=== PATIENT | female | born 1970 | race Caucasian/White ===

== ENCOUNTER 2023-02-22 15:24 | Inpatient (IN) | payer OTHER, SELFPAY ==
[2023-02-22] VITALS (11 sets, daily range): BP systolic 121–158; BP diastolic 67–101; PULSE 62–98; RESP 14–22; TEMP 36.4–36.5; O2SAT 95–100; BMI 24.9
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
[2023-02-22] MEDS: ceFAZolin 2 GM/50 ML BAG 100 GM (15:51)
[2023-02-22] MEDS: HYDROmorphone 2 MG/ML SYR (15:52)
[2023-02-22] MEDS: HYDROmorphone 2 MG/ML SYR 1 MG IVP ×3 (16:17→18:36)
[2023-02-22] MEDS: Omnipaque 350 MG/ML 100 ML BTL IJ (16:20)
[2023-02-22] MEDS: Normal Saline - Diluent 50 ML VIAL IJ (16:22)
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
[2023-02-22 17:57] LABS: Abs Immature Grans 0.05 10^3/uL (0.0-0.06); Absolute Basophil Count 0.04 10^3/uL (0.0-0.2); Absolute Eosinophil Count 0.01 10^3/uL (0.0-0.7); Absolute Lymphocyte Count 0.99 10^3/uL (1.2-3.4); Absolute Monocyte Count 0.75 10^3/uL (0.1-0.8); Absolute Neutrophil Count 12.77 10^3/uL (1.2-6.7); Basophils % 0.3; Eosinophils % 0.1; HCT 32.9 % (36.0-46.0); HGB 11.3 g/dL (11.2-15.7); Immature Grans % 0.3; Lymphocytes % 6.8; MCH 34.2 pg (27.0-33.0); MCHC 34.3 % (32.0-36.0); MCV 100 fL (80-95); MPV 9.9 fL (8.0-11.0); Monocytes % 5.1; Neutrophils % 87.4; Platelet Count 210 10^3/uL (130-400); RDW 12.2 % (11.7-14.6); RDW-SD 44.7 fL; WBC 14.61 10^3/uL (4.4-10.8)
[2023-02-22 18:11] LABS: ALT 18 U/L (14-59); AST 28 U/L (15-37); Albumin 3.2 g/dL (3.4-5.0); Alkaline Phosphatase 51 U/L (46-116); Anion Gap 9.9 mmol/L (3-11); BUN 14 mg/dL (7-18); Bilirubin, Total 0.2 mg/dL (0.2-1.0); CO2 25.1 mmol/L (21.0-32.0); CREATININE 0.8 mg/dL (0.55-1.02); Calcium 7.4 mg/dL (8.5-10.1); Chloride 104 mmol/L (98-107); Estimated GFR 88.05 (mL/min/1.73m2); Glucose 97 mg/dL (74-106); Magnesium 1.5 mg/dL (1.8-2.4); Potassium 3.6 mmol/L (3.5-5.1); Sodium 139 mmol/L (136-145); Total Protein 6.1 g/dL (6.4-8.2)
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
--- NOTE | 2023-02-22 19:45 | DI.RAD_ITS ---
Exam(s) XR FOREARM LT EXAM: XR FOREARM LT CLINICAL HISTORY: LEFT RADIUS/ULNA FX TECHNIQUE: 2D and realtime digital imaging was performed. CONTRAST MATERIAL: Refer to procedure report. COMPARISON: CR,XR XR FOREARM LT from 02/22/2023 FINDINGS: Fluoroscopy was provided for Dr. Bundy during the performance of a reduction and internal fixation o f the radius and ulnar fractures. Please refer to the procedure report for complete details. Ka,r=0.18 mGy IMPRESSION: RADIATION DOSE DELIVERED:
--- NOTE | 2023-02-22 20:05 | W.PM.OP ---
Date of service: 02/22/23 Time of Service: 20:05 Operative Note Operative Note DATE OF PROCEDURE: 02/22/23 PRE-OP DIAGNOSIS: Left open displaced radius and ulnar shaft fracture POST-OP DIAGNOSIS: same PROCEDURE: Left 1. Radius and ulnar shaft open reduction internal fixation, CPT# 28161 2. Open fracture irrigation and debridement including skin, subcutaneous tissue, muscle, fascia, and bone, CPT #41854 SURGEON: Curt Bundy PRODUCTION ZONE LEADER: Macrina Burgos ANESTHESIA TYPE: Local By Surgeon and General LMA/ETT Refer to Anesthesia Record ESTIMATED BLOOD LOSS: 15 PATHOLOGY: none sent TOURNIQUET TIME: 0 COMPLICATIONS: None Patient was transported to: PACU Patient's condition: stable Implants: Synthes 3.5 mm LCP 6-hole plate with 6x 3.5mm cortex screws radius & 3.5 mm LCP 6-hole plate with 6x 3.5mm cortex screws ulna Indications: Please see complete medical record for details. Findings: Dorsal open wound sites from both proximal forearm bone with gross contamination around skin, subcutaneous tissue, muscle, and bone. Dorsal ulnar wound was about 2 cm oblique. Dorsal central wound was about 3 cm round with soft tissue loss centrally. Procedure Description: In the operating room, general anesthesia was induced. The patient was positioned supine on the operating room table. All bony prominences were well-padded. Preoperative antibiotics were administered. The left forearm was prepped and draped in the usual sterile fashion. The correct patient, procedure, and side of the procedure were all verified prior to incision. With the splint off, the forearm was examined. The radial pulse was 1+ but palpable. There was gross instability and obvious deformity of the forearm. Compartments were soft. The dorsal wounds tracked deeply to both radius and ulna bones. Although local wound care had been done in the emergency department, there was still gross contamination dirt and small foreign debris about the skin margins and deep tissue. The dorsal ulnar open wound was extended a few centimeters proximally and distally. There was a defect about the ECU that was utilized and tissue elevated proximally distally to expose the bone ends. There was foreign material dirt and debris about the subcutaneous tissue, muscle, and on the end of the bone and in the bone canal. This wound was meticulously debrided and irrigated of all foreign material with rongeur, pickups, and Perez tip suction used to thoroughly clean the bone and and remove contaminated bone at the fracture site. 1 L normal saline was irrigated. The dorsal central radial fracture wound was thoroughly irrigated and debrided of gross contamination visible from the dorsal side however the forearm was then positioned for usual volar James approach to the radial shaft. The skin was incised and then subcutaneous and deep tissue defects were then used from the injury to expose the fractures, which directed the approach slightly more radial than usual. The brachial radialis and radial sensory nerve were carefully mobilized and retracted radially. The radial artery was crossing the incision and more readily mobilized ulnarly with the flexor carpi radialis. There was significant muscle injury at the fracture site with partial transection of deep forearm compartment muscle probably involving the flexor pollicis longus. Where the bone ends were contaminated, but to a lesser degree. Again meticulous debridement was done to remove all small gross contaminants from the skin, subcutaneous tissue, muscle tendon and especially the bone and, which had to be similarly debrided with rongeur to remove contaminated bone. There was a devitalized segmental piece of comminution that was removed. Smaller pieces with soft tissue attachments were cleaned and remained. Another 1 L of normal saline was irrigated at this site. Once the open fracture irrigation and debridement is done, attention was turned to reduction and fixation of the forearm fractures. The radial shaft was provisionally reduced and reduction held in place with a threaded K wire. The 8 hole plate appeared too large for the diminutive patient forearm so a 6-hole plate was used instead. It was slightly contoured to radial curvature. The plate was applied to the volar surface, secured to the distal fragment with a 3.5 mm bicortical cortex screw, position optimized, and secured to the proximal fragment with another screw. K wire was removed. And bone clamps used and final tightening of the proximal screw to achieve some compression across the fracture site limited by removal of comminution and debridement of the bone ends. An additional proximal and distal bicortical cortex screw was placed. Attention was then turned back to the ulna with the bones reduced with clamps and a 6-hole plate applied to the dorsal surface. It was secured proximally with a bicortical cortex screw and then distally and eccentrically drilled cortex screw was used to achieve compression across the fracture site and optimize plate placement. An additional 2 proximal and distal bicortical cortex screws were placed. The radius was again exposed and the final proximal and distal bicortical cortex screws placed. Final C arm fluoroscopy showed excellent reduction of fractures and appropriate hardware placement. There was a single slightly long 16mm volar radial screw, maybe 2mm, which had to remain as all screws of that 14mm length had been used in the remainder of the plate positions. Both wounds were copiously irrigated with another 1 L of normal saline. Hemostasis was appropriate. The radial artery was intact. Subcutaneous tissue was closed for both surgical sites using 2-0 Monocryl buried interrupted. The skin was closed using 3-0 nylon in a running horizontal mattress manner with an escape stitch centrally. The open wound dorsal ulnarly was incorporated in the closure somewhat loosely. The dorsal central wound was not appropriate for complete closure and instead with a horizontal mattress the tissue margins were approximated to minimize defect. The extremity was cleansed. Compartments remained compressible. Xeroform applied over all incisions and wound. Gauze placed over incisions and the forearm wrapped in sterile soft roll. A volar plaster splint was then molded to the extremity and secured with an Oli bandage. The pulse oximeter was used to confirm appropriate waveform at both the thumb and small fingers. The patient awoke from anesthesia without complication and was transferred to the recovery room in a stable condition.
[2023-02-22] MEDS: Lactated Ringers 1,000 ML 30 ML IV (20:21)
[2023-02-22] MEDS: fentaNYL 100 MCG/2 ML VIAL IVP (23:20)
--- NOTE | 2023-02-22 23:43 | W.PM.PROGNOT ---
Date of Service Date of service: 02/22/23 Time of Service: 23:43 Assessment and Plan Assessment and plan (1) Open fracture of shaft of left radius and ulna: Status: Acute Assessment and plan: 52-year-old female postop day #0 status post left radius and ulnar shaft fracture I&D, ORIF Strict elevation left forearm on pillows. Encourage wiggling fingers and thumb to increase circulation and prevent stiffness. Sling for support when out of bed Pain control-Multimodal Continue mechanical DVT prophylaxis with SCD Anticipate discharge home after completing 24 hours postoperative antibiotics. Follow-up with local orthopedic surgeon in [facility] in 1-2 weeks. Objective Last Vital Signs Temp 97.7 F 02/22/23 23:30 Pulse 62 02/22/23 23:30 Resp 14 02/22/23 23:30 BP 138/89 02/22/23 23:30 Pulse Ox 98 02/22/23 23:30 Laboratory Results - last 24 hr 02/22/23 02/22/23 17:47 17:47 WBC 14.61 H RBC 3.30 L Hgb 11.3 Hct 32.9 L MCV 100 H MCH 34.2 H MCHC 34.3 RDW 12.2 Plt Count 210 MPV 9.9 Immature Gran % 0.3 Neutrophils % 87.4 Lymphocytes % 6.8 Monocytes % 5.1 Eosinophils % 0.1 Basophils % 0.3 Nucleated RBC % 0.0 Absolute Neutrophils 12.77 H Absolute Lymphocytes 0.99 L Absolute Monocytes 0.75 Absolute Eosinophils 0.01 Absolute Basophils 0.04 Sodium 139 Potassium 3.6 Chloride 104 Carbon Dioxide 25.1 Anion Gap 9.9 BUN 14 Creatinine 0.8 Est GFR (CKD-EPI 2020) 88.05 Glucose 97 Calcium 7.4 L Magnesium 1.5 L Total Bilirubin 0.2 AST 28 ALT 18 Alkaline Phosphatase 51 Total Protein 6.1 L Albumin 3.2 L PAWSS Have you Been Recently Intoxicated or Drunk Within the Last 30 days?: No Have you Ever Experienced Previous Episodes of Alcohol Withdrawal?: No Have you ever Experienced Withdrawal Seizures?: No Have you ever Experienced Delirium Tremens(DT)s?: No Have you ever undergone Alcohol Rehabilitation Treatment (i.e, inpt ot outpatient treatment programs)?: No Have you ever Experienced Blackouts?: No Have you ever Combined Alcohol with other Downers within the last 90 days?: No Have you ever Combined Alcohol with any other Substance of Abuse during the last 90 days?: No Positive Blood Alcohol level on Presentation? [PCS.BAL]: No Evidence of Increased Autonomic Activity (i.e. HR>120, tremor, sweating, agitation, nausea)?: No Result: 0 Time Spent with Patient Time Spent with Patient: <25 minutes Time was spent: preparing to see the patient(eg.review tests)
--- NOTE | 2023-02-22 23:57 | W.ANESPOSTOP ---
Postoperative Evaluation Date, Time and Location Date Performed: 02/22/23 Time Performed: 23:57 Patient Location: Med/Surg Vital Signs Most Recent Imported Vital Signs: Most Recent Vital Signs Temp Pulse Resp BP Pulse Ox 36.5 C 62 14 138/89 98 02/22/23 23:30 02/22/23 23:30 02/22/23 23:30 02/22/23 23:30 02/22/23 23:30 Pain Score Most Recent Pain Score: Most Recent Pain Score Pain Level 4 02/22/23 23:30 Assessment Mental Status: Awake (Alert & Oriented to Patient Baseline) Airway and Respiratory Function: Patent airway with normal (patient baseline) respiratory exam Cardiovascular Function: Hemodynamically Stable Hydration Status: Adequately Hydrated Nausea & Vomiting: No Nausea or Vomiting Pain: Pain is tolerable per patient Peripheral Nerve Block: Patient did not receive a nerve block Postoperative Comments:: All questions answered patient reporting pain is well controlled and is in the care of Med/surg RNs.
[2023-02-23] MEDS: MAGNESIUM SULFATE 2 GM/50 ML BAG IVPB (00:33)
[2023-02-23 00:43] LABS: Bilirubin Negative (Negative); Blood Negative (Negative); Clarity Clear (Clear); Glucose Negative (Negative); Ketones Trace mg/dL (Negative); Leukocyte Esterase Negative (Negative); Nitrite Negative (Negative); Urobilinogen 0.2 mg/dL (Up to 0.2); pH 5.5 (5-8)
[2023-02-23] MEDS: Naproxen 250 MG TAB PO ×2 (01:10→14:12)
[2023-02-23] MEDS: ceFAZolin 1 GM/50 ML BAG IVPB ×3 (01:10→14:06)
[2023-02-23 01:12] VITALS: BP 136/84; PULSE 71; RESP 16; TEMP 36.9; O2SAT 95
[2023-02-23 04:17] VITALS: BP 111/66; PULSE 72; RESP 18; TEMP 37.1; O2SAT 95
[2023-02-23 07:14] VITALS: BP 105/66; PULSE 76; RESP 18; TEMP 36.6; O2SAT 95
[2023-02-23] MEDS: Normal Saline Flush 10 ML SYR IVP ×2 (08:56→14:06)
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
[2023-02-23] MEDS: Acetaminophen 500 MG TAB 1000 MG PO (09:04)
--- NOTE | 2023-02-23 09:29 | W.ED.FU ---
Date of service: 02/23/23 Time of Service: 08:00 Follow Up Plan: 929 --Dr. Cooper called the ED to report that there is a discrepancy in the CT head and cervical spine which notes a fluid level in the left maxillary sinus with question of irregularity of the floor of the left orbit suspicious for fracture - he is recommending a facial bone CT without contrast for better evaluation. These findings were reported to Dr. Bundy - he will discuss these findings with the patient to determine plan.
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
[2023-02-23 11:31] VITALS: BP 95/59; RESP 18; TEMP 37.4; O2SAT 98
--- NOTE | 2023-02-23 12:55 | CMDISCH_ITS ---
Date of service: 02/23/23 Time of Service: 12:55 LACE Index Scoring Tool Questions: Length of Stay (in days): 1 Was the patient admitted via the E.D.?: Yes E.D. Visits: 1 Answers: Total Score: 5 Risk of Readmission: Low Risk Care Management Discharge Plan Reason for Hospitalization: open fracture of radius and ulna Discharge Plan: Dorcas will be discharged home with no new services. She will follow up with an Orthopedic surgeon in [place] and her PCP and plan of care. Her will drive her home. Patient/Family Education Needs: Review of discharge instructions, limitations, activity, follow up plan, discuss Ask Me Three
== END 2023-02-23 15:19 | disposition home or self-care (01) | DRG 511 ==
LOC: ER 19:01 → MS 02-23 07:32 → ER 02-24 11:50 → SUR 02-25 11:48 → MS 02-25 11:48
PROVIDERS: Admitting Provider Student in an Organized Health Care Education/Training Program; Emergency Provider Emergency Medicine; Visit Provider Student in an Organized Health Care Education/Training Program
PROC: 0PSJ04Z Reposition Left Radius with Internal Fixation Device, Open Approach (ICD-10-PCS; CPT 25575; principal; 2023-02-22 20:00)
DX: S52.202B Unspecified fracture of shaft of left ulna, initial encounter for open fracture type I or II (principal); S02.32XA Fracture of orbital floor, left side, initial encounter for closed fracture; S06.0X9A Concussion with loss of consciousness of unspecified duration, initial encounter; S52.302B Unspecified fracture of shaft of left radius, initial encounter for open fracture type I or II; S63.601A Unspecified sprain of right thumb, initial encounter; V19.3XXA Pedal cyclist (driver) (passenger) injured in unspecified nontraffic accident, initial encounter; Y93.55 Activity, bike riding
CPT/HCPCS: 25575; 11012; 36415; 74177; 76000; 80053; 90471; 96365; 96366; 96375; 99285; 70450; 71260; 72125; 73090; 73140; 81003; 83735; 85025; J0131; J0690; J1100; J1170; J1885; J2405; J2704; J3010; J3490